=== PATIENT | male | born 1970 | race Caucasian/White ===

== ENCOUNTER 2022-06-16 09:08 | Day surgery (SDC) | payer SELFPAY ==
[~2022-06-16 09:08] MED LIST: Bupivacaine 0.5% 50 ML MDV ONE; Bupivacaine 0.5%/EPINEPHrine 1:200,000 50 ML MDV ONE; Lidocaine 1% with EPINEPHrine 1:100,000 50 ML MDV ONE; Midazolam 1 MG/ML 2 ML SDV ONE; Propofol 200 MG/20 ML SDV ONE; fentaNYL 100 MCG/2 ML SDV ONE
[2022-06-16] MEDS ORDERED: Dextrose 5%-Lactated Ringers 1,000 ML IV SCH (09:45)
[2022-06-16] MEDS ORDERED: Celecoxib 200 MG Cap PO ONE (09:45)
[2022-06-16] MEDS ORDERED: Propofol 200 MG/20 ML SDV ONE ×3 (10:18→10:44)
[2022-06-16] MEDS ORDERED: Midazolam 1 MG/ML 2 ML SDV ONE (10:21)
[2022-06-16] MEDS ORDERED: ceFAZolin 2 GM in Premix Bag 1 BAG IV ONE (10:30)
[2022-06-16] MEDS ORDERED: Ketorolac 30 MG/ML SDV ONE (10:31)
[2022-06-16] MEDS ORDERED: Ketamine 500 MG/5 ML MDV IV SCH (10:45)
[2022-06-16] MEDS ORDERED: Ketamine 21 MG in Sodium Chloride 0.9% 19.79 ML IV SCH (10:45)
[2022-06-16] MEDS ORDERED: fentaNYL 100 MCG/2 ML SDV ONE (10:47)
[2022-06-16] MEDS ORDERED: oxyCODONE 5 MG Tab PO PRN (12:28)
== END 2022-06-16 13:37 | disposition home or self-care (01) ==
LOC: JP.SDS 09:08
PROVIDERS: ATTEND Surgery
DX: K40.30 Unilateral inguinal hernia, with obstruction, without gangrene, not specified as recurrent (principal); H35.9 Unspecified retinal disorder; H52.4 Presbyopia; H52.203 Unspecified astigmatism, bilateral; F17.200 Nicotine dependence, unspecified, uncomplicated
CPT/HCPCS: 49507; 64772; 88305; A9270; C1713; C1781; J0131; J0690; J1885; J2250; J2704; J3010; J3490; J7121